=== PATIENT | female | born 1995 | race Caucasian/White ===

== ENCOUNTER 2018-09-02 22:50 | Emergency (ER) | payer OTHER ==
[~2018-09-02] VITALS: Ht 167.6 cm; Wt 68.9 kg
[2018-09-02 23:03] VITALS: Ht 167.6 cm; Wt 68.9 kg
[2018-09-03 01:52] VITALS: BP 105/67
== END 2018-09-03 01:52 | disposition home or self-care (01) ==
LOC: ED 22:50
DX: B34.9 Viral infection, unspecified (principal)